=== PATIENT | female | born 1955 | race Caucasian/White ===

== ENCOUNTER 2018-03-14 21:32 | Emergency (ER) | payer OTHER ==
[~2018-03-14] VITALS: Ht 157.5 cm; Wt 77.0 kg
[~2018-03-14 21:32] MED LIST: ADVA250A INH; ALPR0.5T3 PO; AMLO10TA2 PO; APIX5TAB PO; ASCO100029 PO; AZEL0.05 EACH EYE; CHOL1CAP34 PO; CODE30TA2 PO; CULT10CA4 PO; CYAN1TAB24 PO; CYMB60CA PO; FERR325T18 PO; HUMALOG SQ; IVIG10P4 IV; LIPI20TA PO; LOSA100T3 PO; LOSA50TA2 PO; MOBI15TA PO; PRED5TAB PO; PROT40TA PO; ROFL1TAB2 PO; SIME180C7 PO; SULF20OR2 PO; TIOT12.9 INH; VENTAER INH; VITA400T14 PO; VITA500T83 PO; ZANT300T PO; ZINC220T PO
[2018-03-14 21:44] VITALS: BP 146/58; PULSE 102; RESP 24; TEMP 97.8; O2SAT 94
--- NOTE | 2018-03-14 22:13 | PD ---
HPI Chief Complaint: ENT Complaint Time Seen by Provider: 22:09 Travel History International Travel<30 days: No Contact w/Intl Traveler<30days: No Traveled to known affect area: No History of Present Illness HPI Patient comes in complaining of intermittent nosebleeds that have been ongoing for the past 3 hours, she has been placing pressure from the outside it seems to slow it down a little bit and then as soon as she sneezes or does anything the bleeding returns. Per patient she is oxygen dependent and always wears her nasal cannula for supplemental oxygen. And at nighttime she wears a nasal CPAP that she must use. The patient states that she is on Eliquis for DVT. Unfortunately the patient has not been able to stop her nosebleeds over the past 3 hours and thus the reason why the patient is here. Additionally because of the holiday she will not be able to see an ear nose and throat doctor until Saturday Patient states that she has allergies to Keflex Neurontin and oxycodone Lyrica Past medical history significant for cataracts removal, CVA, TIA 1994, migraine , hypertension, Eliquis, hypercholesterolemia, COPD oxygen dependent, emphysema , snoring sleep apnea, appendectomy, hysterectomy, GERD, inflammatory bowel disorder, osteoporosis, diabetes, arthritis, PFSH Past Medical History Hx Anticoagulant Therapy: Yes (Eliquis) Arthritis: Yes Asthma: Yes Autoimmune Disease: No Heart Rhythm Problems: No Cancer: No Cardiovascular Problems: Yes (HTN, ) High Cholesterol: Yes Chest Pain: Yes Congestive Heart Failure: No COPD: Yes Cerebrovascular Accident: Yes (1994) Coronary Artery Disease: No Diabetes: Yes (Humalog) Patient Takes Glucophage: No Endocrine: No Gastrointestinal Disorders: Yes GERD: Yes Genitourinary: No Headaches: Yes Hiatal Hernia: Yes Immune Disorder: No Kidney Stones: No Musculoskeletal: Yes Neurologic: No Psychiatric: No Reproductive: No Respiratory: Yes (COPD, Emphysema, nodules) Immunizations Current: Yes Migraines: Yes Renal Failure: No Seizures: No Sickle Cell Disease: No Sleep Apnea: Yes Thyroid Disease: No Ulcer: No Tetanus Vaccination: Unknown Influenza Vaccination: Yes Past Surgical History Abdominal Surgery: Yes (APPENDIX) AICD: No Appendectomy: Yes Arteriovenous Shunt: No Cardiac Surgery: No Ear Surgery: No Endocrine Surgery: No Eye Surgery: Yes (CATARACTS REMOVED, LENZES IMPLANTED) Genitourinary Surgery: No Gynecologic Surgery: Yes (HYSTERECTOMY) Hysterectomy: Yes Insulin Pump: No Joint Replacement: No Oral Surgery: No Pacemaker: No Thoracic Surgery: No Tonsillectomy: Yes Other Surgery: Yes Social History Alcohol Use: Yes (OCC) Tobacco Use: No Substance Use: No Allergies-Medications (Allergen,Severity, Reaction): Coded Allergies: cephalexin (Verified Allergy, Severe, Respiratory Failure, 03/14/18) gabapentin (Verified Allergy, Severe, SWELLING FACE AND TONGUE, 03/14/18) milnacipran (Verified Allergy, Severe, SWELLING FACE AND TONGUE, 03/14/18) pregabalin (Verified Allergy, Severe, SWELLING FACE AND TONGUE, 03/14/18) zafirlukast (Verified Allergy, Severe, LETHARGY, 03/14/18) zolpidem (Verified Allergy, Intermediate, INSOMNIA, 03/14/18) oxycodone (Verified Allergy, Mild, VOMITING, 03/14/18) Uncoded Allergies: HYCOMINE (Allergy, Severe, Respiratory Failure, 02/26/15) amitiza (Allergy, Severe, Chest Pain, 03/19/17) Reported Meds & Prescriptions Reported Meds & Active Scripts Active Reported Sulfamethoxazole-Trimethoprim Liq 200-40 Mg/5 Ml Susp 20 Ml PO BID Prednisone 10 Mg Tab 10 Mg PO DAILY Ferrous Sulfate ER (Ferrous Sulfate) 140 Mg (45 Mg Iron) Tab 325 Mg PO WEEKLY Losartan-Hydrochlorothiazide 50-12.5 Mg Tab 1 Tab PO HS Losartan-Hydrochlorothiazide 100-12.5 Mg Tab 1 Tab PO DAILY Zinc Sulfate 220 Mg Tab 220 Mg PO DAILY Vitamin C (Ascorbic Acid) 1,000 Mg Tablet.er Mg PO DAILY B12 (Cyanocobalamin) 1,000 Mcg Tab Mcg PO DAILY Amlodipine (Amlodipine Besylate) 10 Mg Tab 10 Mg PO DAILY Culturelle (Lactobacillus Rhamnosus (GG)) 10 Billion Cell Cap 1 Cap PO DAILY Protonix (Pantoprazole Sodium) 40 Mg Tab 40 Mg PO DAILY Lipitor (Atorvastatin Calcium) 20 Mg Tab 20 Mg PO HS Zantac (Ranitidine HCl) 300 Mg Tab 300 Mg PO DAILY Daliresp (Roflumilast) 500 Mcg Tab 500 Mcg PO DAILY Humalog Inj (Insulin Human Lispro) 1,000 Unit/10 Ml Vial 1-9 Units SQ ACHS Max dose at bedtime:( )units; sugars< 70,(0)units; sugars 150-199,(1)unit; sugars 200-249,(3)units; sugars 250-299,(5)units; sugars 300-349,(7)units; sugars more than 349,(9)units. Eliquis (Apixaban) 5 Mg Tab 5 Mg PO BID Privigen Inj (Immune Globulin) 10 Gm/100 Ml Inj 50 Gm IV MONTHLY Ventolin Hfa 18 GM Inh (Albuterol Sulfate) 90 Mcg/Act Aer 2 Puff INH Q4-6H PRN Phazyme (Simethicone) 180 Mg Capsule 2 Tab PO BID Cymbalta DR (Duloxetine HCl) 60 Mg Capdr 60 Mg PO DAILY Vitamin D3 (Cholecalciferol) 50,000 Unit Cap 50,000 Units PO Q7D Spiriva Respimat Inh (Tiotropium Inh) 2.5 Mcg/Act Aero 2 Puff INH DAILY 2.5 mcg = 1 inhalation Advair Diskus Inh (Fluticasone-Salmeterol Inh) 250-50 Mcg/Blist Aer 1 Puff INH BID Rinse mouth after use. Review of Systems General / Constitutional: No: Fever Eyes: No: Visual changes HENT: Positive: Nosebleed Cardiovascular: No: Chest Pain or Discomfort Respiratory: No: Shortness of Breath Gastrointestinal: No: Abdominal Pain Genitourinary: No: Dysuria Musculoskeletal: No: Pain Skin: No Rash Neurologic: No: Weakness Psychiatric: No: Depression Endocrine: No: Polydipsia Hematologic/Lymphatic: No: Easy Bruising Physical Exam Narrative GENERAL: SKIN: Warm and dry. HEAD: Atraumatic. Normocephalic. EYES: Pupils equal and round. No scleral icterus. No injection or drainage. ENT: No nasal bleeding or discharge. Mucous membranes pink and moist. Noted bilateral anterior nasal abrasions which are slowly bleeding NECK: Trachea midline. No JVD. CARDIOVASCULAR: Regular rate and rhythm. RESPIRATORY: No accessory muscle use. Clear to auscultation. Breath sounds equal bilaterally. GASTROINTESTINAL: Abdomen soft, non-tender, nondistended. MUSCULOSKELETAL: Extremities without clubbing, cyanosis, or edema. No obvious deformities. NEUROLOGICAL: Awake and alert. No obvious cranial nerve deficits. Motor grossly within normal limits. Five out of 5 muscle strength in the arms and legs. Normal speech. PSYCHIATRIC: Appropriate mood and affect; insight and judgment normal. Data Data Last Documented VS Vital Signs Date Time Temp Pulse Resp B/P (MAP) Pulse Ox O2 Delivery O2 Flow Rate FiO2 03/14/18 21:44 97.8 102 24 146/58 (87) 94 MDM Medical Decision Making Medical Screen Exam Complete: Yes Emergency Medical Condition: Yes Medical Record Reviewed: Yes Differential Diagnosis Anterior nasal epistaxis versus posterior Narrative Course Clinically this patient has anterior nasal epistaxis, since the patient is on Eliquis the best choice would be to do a bilateral Rhino Rocket placement however we will not do this until after obtaining a mask for her CPAP machine since she currently only has the nasal attachment which will not work if she is bilaterally packed. Will get in touch with library technician to see if we can obtain a mask to switch her to Patient was observed personally in the emergency department for 2 hours without having any episode of bleeding or spotting from her nose. We were able to switch her nasal mask to a full facemask for her CPAP machine which should help her especially and try not to dislodge her clot this beginning to form on the anterior nasal septum. Diagnosis Primary Impression: Bilateral anterior epistaxis Referrals: Tj Chawla MD Surgeon nosebleed recur please go see a specialist here to control your bleeding. Patient Instructions: Epistaxis (DC), General Instructions Additional Instructions: Should her bleeding recur during off hours for ear nose and throat please return to [facility] overnight on March 14 or March 15, you will be seen by Dr. Gonzales Disposition: 01 DISCHARGE HOME Condition: Stable Rodrigo Gonzales MD March 14, 2018 22:13
[2018-03-14] MEDS ORDERED: SULF20OR2 PO (22:16)
[2018-03-14] MEDS ORDERED: FERR140T PO (22:16)
[2018-03-14] MEDS ORDERED: PRED10 PO (22:16)
== END 2018-03-14 23:48 | disposition home or self-care (01) ==
LOC: NEPC 21:32
DX: R04.0 Epistaxis (principal)
CPT/HCPCS: 30901